=== PATIENT | male | born 1970 | race African-American/Black ===

== ENCOUNTER 2017-11-18 14:56 | Emergency (ER) | payer MEDICAID ==
[~2017-11-18] VITALS: Ht 172.7 cm; Wt 68.2 kg
[2017-11-18 15:07] VITALS: BP 119/71
[2017-11-18] MEDS ORDERED: PERTUSS(ACELL),DIPH,TET VAC/PF 0.5 ML VIAL IM ONE (16:00)
== END 2017-11-18 16:00 | disposition home or self-care (01) ==
LOC: EMS 14:59
DX: S00.81XA Abrasion of other part of head, initial encounter (principal); S00.512A Abrasion of oral cavity, initial encounter; W50.0XXA Accidental hit or strike by another person, initial encounter; Y93.89 Activity, other specified; Y92.89 Other specified places as the place of occurrence of the external cause; Y99.8 Other external cause status
CPT/HCPCS: 90471; 90715; 99283